=== PATIENT | male | born 1965 | race Caucasian/White ===

== ENCOUNTER 2020-12-07 04:23 | Emergency (ER) | payer MEDICAID, OTHER ==
[~2020-12-07] VITALS: Ht 172.7 cm; Wt 72.6 kg
--- NOTE | 2020-12-07 04:32 | NUR ---
in room to do MSE.
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
--- NOTE | 2020-12-07 05:42 | NUR ---
Called [facility] who states no med-surg beds are available at this time. Only peds beds are available.
[2020-12-07] MEDS ORDERED: CEFAZOLIN 1 G in IV DEXTROSE 5% 50 ML IV ONE (05:45)
--- NOTE | 2020-12-07 05:46 | NUR ---
Called [facility] transfer center and spoke to Randa who states no beds available at this time, but suggested to call back if no other facility will accept patient.
[2020-12-07] MEDS ORDERED: CEFAZOLIN 1 G VIAL ONE (05:53)
--- NOTE | 2020-12-07 05:55 | NUR ---
Called [facility] spoke to Teena who requesting facesheet and summary report to be faxed to .
[2020-12-07 06:25] LABS: HEMATOCRIT 44.7 % (36.7-47.1); MEAN CORPUSCULAR HEMOGLOBIN 26.9 uug (23.8-33.4); MEAN CORPUSCULAR VOLUME 82.6 fL (73.0-96.2); PLATELET COUNT (AUTO) 252 K/uL (152-348)
--- NOTE | 2020-12-07 06:30 | NUR ---
Called [facility] transfer center, spoke to Randa who is requesting facesheet and summary report to be fax to .
[2020-12-07 06:34] LABS: *BILIRUBIN,URIN NEGATIVE (NEGATIVE); *BLOOD, URINE NEGATIVE (NEGATIVE); *CLARITY,URINE CLEAR (CLEAR); *COLOR,URINE YELLOW (YELLOW); *KETONES,URINE NEGATIVE (NEGATIVE); *UROBILINOGEN,URINE 0.2 E.U./dl (NORMAL); LEUKOCYTE ESTERASE ,URINE NEGATIVE (NEGATIVE); NITRITE, URINE NEGATIVE (NEGATIVE); UGLUCOSE NEGATIVE (NEGATIVE)
[2020-12-07 06:37] LABS: CARBON DIOXIDE 25 mmol/L (21-32); CHLORIDE 103 mmol/L (98-107); CREATININE 0.8 mg/dL (0.6-1.3); GLUCOSE 123 mg/dL (74-106); POTASSIUM 4.9 mmol/L (3.5-5.1); UREA NITROGEN, BLOOD 21 mg/dL (7-18)
[2020-12-07 06:43] LABS: *AMPHETAMINE, URINE POSITIVE (NEGATIVE); *CANNABINOID, URINE NEGATIVE (NEGATIVE); *COCCAINE, URINE POSITIVE (NEGATIVE); *OPIATE, URINE POSITIVE (NEGATIVE); *PHENCYCLIDINE SCREEN,URINE NEGATIVE (NEGATIVE)
[2020-12-07 06:43] LABS: ALANINE AMINOTRANSFERASE 26 U/L (16-63); ALKALINE PHOSPHATASE 118 U/L (50-136); ASPARTATE AMINOTRANSFERASE 24 U/L (15-37); BILIRUBIN,DIRECT 0.1 mg/dL (0.0-0.2); BILIRUBIN,TOTAL 0.7 mg/dL (0.2-1.0); ETHANOL < 3 MG/DL (0-0); TOTAL PROTEIN, SERUM 7.3 g/dL (6.4-8.2)
--- NOTE | 2020-12-07 06:46 | NUR ---
Called [facility] for possible transefer. But [facility] unable to accept patient due to no ophthalmology.
--- NOTE | 2020-12-07 08:05 | NUR ---
Roxann [facility] called, requested patient clinicals to be faxed to .
--- NOTE | 2020-12-07 08:15 | NUR ---
Patient is on NPO status per MD Melara.
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
--- NOTE | 2020-12-07 08:40 | NUR ---
Patient moaning continously from pain, MD Melara made aware. New orders for 1mg of Dilaudid given.
[2020-12-07] MEDS ORDERED: HYDROMORPHONE 1 MG/1 ML DISP.SYRIN IV ONE (08:45)
[2020-12-07] MEDS ORDERED: HYDROMORPHONE 1 MG/1 ML DISP.SYRIN ONE (08:45)
[2020-12-07] MEDS ORDERED: TDAP DIPH,PERTUSS,TET VAC/PF 0.5 ML DISP.SYRIN IM ONE ×2 (08:45→08:46)
--- NOTE | 2020-12-07 08:50 | NUR ---
Patient provided verbal consent and signed form for administration of TDAP vaccine. LOT: [id number] EXP: 11/11/21 [facility] [employer]
--- NOTE | 2020-12-07 09:06 | NUR ---
Hand-off report given to Jose C RAMOS.
--- NOTE | 2020-12-07 09:30 | NUR ---
Pt's requested an update and was asking what was taking so long. I spoke with the pt and at the bedside and explained that we are in the process of trying to transfer the pt for higher level of care. Pt is awake, alert and oriented x 4. Pt stated "he has a heroin problem and he needs his methadone". stated pt takes 60mg of methadone. I reported the information to . Per pt was medicated with Dilaudid IV a short time ago so he will not order methadone at this time. I reported this information to the pt. Pt seems anxious, turning from side to side in her gurney, no s/s of acute distress noted at this time. Pt and his verbalized understanding of plan of care.
--- NOTE | 2020-12-07 09:39 | NUR ---
Melisa from [facility] called back and stated they had not received the fax as of yet, asked to try resending to original fax and to [phone].
--- NOTE | 2020-12-07 10:15 | NUR ---
Pt eloped with his , apparently with IV still in his arm. Last time seen in bed was approx 1000.
--- NOTE | 2020-12-07 10:30 | NUR ---
Per request I called [employer] non-emergency line to report the pt has eloped and we assume he still has his saline lock in place. I spoke with [id number] who stated they will dispatch a unit to the pt's reported address to check on him. Pt and his eloped from the ER while the ER staff was in room 1 attending to a new brake drum lathe operator run. I looked in room 2 including the trash cans after the pt had eloped and found no evidence of a IV cath.
== END 2020-12-07 10:15 | disposition left against medical advice (07) ==
LOC: ER 04:25
DX: S02.40FA Zygomatic fracture, left side, initial encounter for closed fracture (principal); S02.32XA Fracture of orbital floor, left side, initial encounter for closed fracture; S02.832A Fracture of medial orbital wall, left side, initial encounter for closed fracture; S02.842A Fracture of lateral orbital wall, left side, initial encounter for closed fracture; S02.2XXA Fracture of nasal bones, initial encounter for closed fracture; S01.412A Laceration without foreign body of left cheek and temporomandibular area, initial encounter; Y00.XXXA Assault by blunt object, initial encounter; Y92.019 Unspecified place in single-family (private) house as the place of occurrence of the external cause; Z20.822 Contact with and (suspected) exposure to COVID-19
CPT/HCPCS: 36415; 70450; 70486; 80048; 80076; 80307; 80320; 81003; 85025; 85730; 87040; 87426; 90471; 90715; 96365; 96375; 99291; J0690; J1170; J7060; A4217; A4663; G0480